=== PATIENT | male | born 1990 | race Caucasian/White ===

== ENCOUNTER 2021-01-08 15:26 | Emergency (ER) | payer SELFPAY ==
[~2021-01-08] VITALS: Ht 180.3 cm; Wt 107.0 kg
[2021-01-08 16:03] VITALS: BP 161/108
[2021-01-08 16:55] LABS: BASOPHILS # (AUTO) 0.1 K/uL (0.00-0.22); BASOPHILS % (AUTO) 0.4 % (0.0-2.0); EOSINOPHILS % (AUTO) 0.1 % (0.0-4.0); HEMOGLOBIN 13.6 g/dL (12.0-18.0); LYMPHOCYTES # (AUTO) 2.3 K/uL (2.0-11.5); MEAN CORPUSCULAR HEMOGLOBIN 27 pg (27-31); MEAN CORPUSCULAR HGB CONC 32 g/dL (33-37); MEAN CORPUSCULAR VOLUME 83.7 fL (80-94); MONOCYTES # (AUTO) 1.3 K/uL (0.8-1.0); MONOCYTES % (AUTO) 8.4 % (1.7-9.3); NEUTROPHILS # (AUTO) 11.7 K/uL (1.8-7.7); NEUTROPHILS % (AUTO) 76.1 % (42.2-75.2); PLATELET COUNT (AUTO) 322 K/uL (140-450); RED BLOOD CELL COUNT(AUTO) 5.01 MIL/uL (4.20-6.10); RED CELL DISTRIBUTION WIDTH 13.9 % (11.6-13.7); WHITE BLOOD COUNT (AUTO) 15.4 K/uL (4.8-10.8)
[2021-01-08 17:12] LABS: ANION GAP 12.6 (8-16); CARBON DIOXIDE 23.9 mmol/L (21-32); CREATININE 1.5 mg/dL (0.6-1.3); POTASSIUM 3.5 mmol/L (3.5-5.1)
[2021-01-08] MEDS ORDERED: DOXY-487 PO (18:02)
[2021-01-08 18:43] VITALS: BP 158/111
== END 2021-01-08 18:43 | disposition home or self-care (01) ==
LOC: MED 15:26
DX: J18.9 Pneumonia, unspecified organism (principal); F12.90 Cannabis use, unspecified, uncomplicated; Z79.899 Other long term (current) drug therapy
CPT/HCPCS: 36415; 71045; 80048; 85025; 99284